=== PATIENT | female | born 1970 | race African-American/Black ===

== ENCOUNTER 2017-02-18 14:27 | Emergency (ER) | payer SELFPAY ==
--- NOTE | 2017-02-18 15:06 | ER Document Report ---
ED Medical Screen (RME) - General Chief Complaint: High Blood Pressure Stated Complaint: BLOOD PRESSURE ISSUES Time Seen by Provider: 02/18/17 15:03 Notes: Patient presents with complaints of uncontrolled blood pressure, right occipital headache, and feeling weak. Patient states that she does not have any insurance and has been unable to afford her blood pressure medication. She states in the past she has had a TIA that is resulted in some memory problems. She currently denies any known problems with confusion or extremity weakness. In triage on exam patient was noticed to have a left pronator drift. TRAVEL OUTSIDE OF THE [place] IN LAST 30 DAYS: No - Related Data Allergies/Adverse Reactions: No Known Allergies Allergy (Verified 02/18/17 14:28) Physical Exam - Vital signs Vitals: Temp Pulse Resp BP Pulse Ox 98.3 F 95 20 154/102 H 97 02/18/17 14:33 02/18/17 14:33 02/18/17 14:33 02/18/17 14:33 02/18/17 14:33 Course - Vital Signs Vital signs: Temp Pulse Resp BP Pulse Ox 98.3 F 95 20 154/102 H 97 02/18/17 14:33 02/18/17 14:33 02/18/17 14:33 02/18/17 14:33 02/18/17 14:33
--- NOTE | 2017-02-18 15:43 | RADIOLOGY REPORT (SQ) ---
EXAM DESCRIPTION: CT HEAD WITHOUT COMPLETED DATE/TIME: 02/18/2017 3:34 pm REASON FOR STUDY: mcgill/left pronator drift COMPARISON: None. TECHNIQUE: Axial images acquired through the brain without intravenous contrast. Images reviewed wi th bone, brain and subdural windows. Images stored on PACS. All CT scanners at this facility use dose modulation, iterative reconstruction, and/or weight based d osing when appropriate to reduce radiation dose to as low as reasonably achievable (ALARA). [facility]: Dose Right [facility]: CareDose [facility]: Dose Right [facility]: Teradose 4D [facility]: Smart [employer] RADIATION DOSE: CT Rad equipment meets quality standard of care and radiation dose reduction techniq ues were employed. CTDIvol: 64.6 mGy. DLP: 1163 mGy-cm. mGy. LIMITATIONS: None. FINDINGS: VENTRICLES: Normal size and contour. CEREBRUM: No masses. No hemorrhage. No midline shift. No evidence for acute infarction. Normal gra y/white matter differentiation. No areas of low density in the white matter. CEREBELLUM: No masses. No hemorrhage. No alteration of density. No evidence for acute infarction. EXTRAAXIAL SPACES: No fluid collections. No masses. ORBITS AND GLOBE: No intra- or extraconal masses. Normal contour of globe without masses. CALVARIUM: No fracture. PARANASAL SINUSES: No fluid or mucosal thickening. SOFT TISSUES: No mass or hematoma. OTHER: No other significant finding. IMPRESSION: NORMAL BRAIN CT WITHOUT CONTRAST. EVIDENCE OF ACUTE STROKE: NO. COMMENT: Quality ID # [id number]: Final reports with documentation of one or more dose reduction techniques (e.g., Automated exposure control, adjustment of the mA and/or kV according to patient size, use of iterative reconstruction technique) TECHNICAL DOCUMENTATION: JOB ID: [id number] [employer]- All Rights Reserved
[2017-02-18 15:47] LABS: ABSOLUTE EOSINOPHILS # (AUTO) 0.2 10^3/uL (0.0-0.6); ABSOLUTE LYMPHOCYTES (AUTO) 2.4 10^3/uL (0.5-4.7); ABSOLUTE MONOCYTES (AUTO) 0.5 10^3/uL (0.1-1.4); ABSOLUTE NEUT (AUTO) 3.8 10^3/uL (1.7-8.2); BASOPHILS % (AUTO) 0.2 % (0-2); EOSINOPHILS % (AUTO) 2.8 % (0-6); HEMATOCRIT 39.9 % (36.0-47.0); HEMOGLOBIN 13.3 g/dL (12.0-15.5); LYMPHOCYTES % (AUTO) 35.1 % (13-45); MEAN CORPUSCULAR HEMOGLOBIN 30.7 pg (27.0-33.4); MEAN CORPUSCULAR HGB CONC 33.3 g/dL (32.0-36.0); MEAN CORPUSCULAR VOLUME 92 fl (80-97); MONOCYTES % (AUTO) 6.9 % (3-13); RED BLOOD COUNT 4.34 10^6/uL (3.72-5.28); RED CELL DISTRIBUTION WIDTH 15.2 % (11.5-14.0); WHITE BLOOD COUNT 6.8 10^3/uL (4.0-10.5)
[2017-02-18] MEDS ORDERED: HYDROCODONE/ACETAMINOPHEN 10-325 MG TABLET PO ONE (15:47)
--- NOTE | 2017-02-18 15:47 | ER Document Report ---
ED General - General Chief Complaint: High Blood Pressure Stated Complaint: BLOOD PRESSURE ISSUES Time Seen by Provider: 02/18/17 15:03 Notes: 46 years old female presents today with intractable headache, elevated blood pressure. She checked her blood pressure at workplace and found it has been elevated. She has been having on and off headache almost every day she goes and take Excedrin, usually they help with the headache. Today it was not. She has taken multiple doses. She also gets intermittent cough wheezing and chest tightness. Denies any left arm numbness tingling sensation. She was diagnosed having had a stroke a year ago. Denies any difficulty in walking or other constitutional symptoms. TRAVEL OUTSIDE OF THE [place] IN LAST 30 DAYS: No - Related Data Allergies/Adverse Reactions: No Known Allergies Allergy (Verified 02/18/17 14:28) Past Medical History - Social History Smoking Status: Never Smoker Chew tobacco use (# tins/day): No Frequency of alcohol use: None Drug Abuse: None Family History: Reviewed & Not Pertinent Patient has suicidal ideation: No Patient has homicidal ideation: No Renal/ Medical History: Denies: Hx Peritoneal Dialysis Review of Systems - Review of Systems Notes: REVIEW OF SYSTEMS: CONSTITUTIONAL : Denies fever, chills, or sweats. Denies recent illness. EENT: Denies eye, ear, throat, or mouth pain or symptoms. Denies nasal or sinus congestion or discharge. Denies throat, tongue, or mouth swelling or difficulty swallowing. CARDIOVASCULAR: Denies chest pain. Denies palpitations or racing or irregular heart beat. Denies ankle edema. RESPIRATORY: As per history of complain denies shortness of breath, difficulty breathing, or wheezing. GASTROINTESTINAL: Denies abdominal pain or distention. Denies nausea, vomiting , or diarrhea. Denies blood in vomitus, stools, or per rectum. Denies black, tarry stools. Denies constipation. GENITOURINARY: Denies difficulty urinating, painful urination, burning, frequency, blood in urine, or discharge. FEMALE GENITOURINARY: Denies vaginal bleeding, heavy or abnormal periods, irregular periods. Denies vaginal discharge or odor. MUSCULOSKELETAL: Denies back or neck pain or stiffness. Denies joint pain or swelling. SKIN: Denies rash, lesions or sores. HEMATOLOGIC : Denies easy bruising or bleeding. LYMPHATIC: Denies swollen, enlarged glands. NEUROLOGICAL: Denies confusion or altered mental status. Denies passing out or loss of consciousness. Denies dizziness or lightheadedness. Denies weakness or paralysis or loss of use of either side. Denies problems with gait or speech. Denies sensory loss, numbness, or tingling. Denies seizures. PSYCHIATRIC: Denies anxiety or stress. Denies depression, suicidal ideation, or homicidal ideation. ALL OTHER SYSTEMS REVIEWED AND NEGATIVE. PHYSICAL EXAMINATION: GENERAL: Well-appearing, well-nourished and in no acute distress. Morbidly obese HEAD: Atraumatic, normocephalic. EYES: Pupils equal round and reactive to light, extraocular movements intact, conjunctiva are normal. ENT: Nares patent, oropharynx clear without exudates. Moist mucous membranes. Palpation over the paraspinal muscles of the neck were tender. NECK: Normal range of motion, supple without lymphadenopathy LUNGS: Breath sounds clear to auscultation bilaterally and equal. No wheezes rales or rhonchi. HEART: Regular rate and rhythm without murmurs ABDOMEN: Soft, nontender, nondistended abdomen. No guarding, no rebound. No masses appreciated. Female : deferred Musculoskeletal: Normal range of motion, no pitting or edema. No cyanosis. NEUROLOGICAL: Cranial nerves grossly intact. Normal speech, normal gait. Normal sensory, motor exams PSYCH: Normal mood, normal affect. SKIN: Warm, Dry, normal turgor, no rashes or lesions noted. Dictation was performed using [employer] voice recognition software migratory female Physical Exam - Vital signs Vitals: Temp Pulse Resp BP Pulse Ox 98.3 F 95 20 154/102 H 97 02/18/17 14:33 02/18/17 14:33 02/18/17 14:33 02/18/17 14:33 02/18/17 14:33 Course - Re-evaluation Re-evalutation: 02/18/17 18:07 Reevaluated, headache has subsided, patient is coming down. Patient feeling comfortable. Subsequently discharged home - Vital Signs Vital signs: Temp Pulse Resp BP Pulse Ox 98.3 F 95 16 149/104 H 96 02/18/17 14:33 02/18/17 14:33 02/18/17 18:02 02/18/17 18:02 02/18/17 18:02 - Laboratory Result Diagrams: 02/18/17 15:25 02/18/17 15:25 Laboratory results interpreted by me: 02/18/17 02/18/17 15:09 15:25 RDW 15.2 H Ur Leukocyte Esterase SMALL H - Diagnostic Test Radiology results interpreted by me: 02/18/17 18:07 CT of the brain reviewed radiology report indicated normal scan. Discharge - Discharge Clinical Impression: Headache Qualifiers: Headache type: unspecified Headache chronicity pattern: acute headache Intractability: not intractable Qualified Code(s): R51 - Headache Hypertension Qualifiers: Hypertension type: essential hypertension Qualified Code(s): I10 - Essential ( primary) hypertension Neck sprain Qualifiers: Encounter type: initial encounter Qualified Code(s): S13.9XXA - Sprain of joints and ligaments of unspecified parts of neck, initial encounter Condition: Good Disposition: HOME, SELF-CARE Instructions: Clonidine (Catapres) ([facility]), High Blood Pressure ([facility]), High Blood Pressure, Requiring Treatment ([facility]) Prescriptions: Ketorolac Tromethamine [Toradol 10 mg Tablet] 10 mg PO Q6HP PRN #14 tablet PRN Reason: Baclofen [Baclofen 10 mg Tablet] 10 mg PO TID PRN #30 tablet PRN Reason: Lisinopril 5 mg PO DAILY #30 tablet
[2017-02-18 15:53] LABS: AMORPHOUS SEDIMENT,URINE TRACE /HPF; APPEARANCE,URINE SLIGHTLY-CLOUDY; BILIRUBIN,URINE NEGATIVE (NEGATIVE); GLUCOSE, URINE NEGATIVE (NEGATIVE); KETONES,URINE NEGATIVE (NEGATIVE); LEUKOCYTE ESTERASE,URINE SMALL (NEGATIVE); NITRITE,URINE NEGATIVE (NEGATIVE); PROTEIN,URINE NEGATIVE (NEGATIVE); URINE SPECIFIC GRAVITY 1.025; UROBILINOGEN,URINE NEGATIVE mg/dL (<2.0)
[2017-02-18 16:03] LABS: ALANINE AMINOTRANSFERASE 31 U/L (9-52); ALBUMIN 4.8 g/dL (3.5-5.0); ALKALINE PHOSPHATASE 76 U/L (38-126); ANION GAP 16 (5-19); ASPARTATE AMINO TRANSFERASE 15 U/L (14-36); BILIRUBIN,DIRECT 0.2 mg/dL (0.0-0.4); BILIRUBIN,TOTAL 0.2 mg/dL (0.2-1.3); BLOOD UREA NITROGEN 15 mg/dL (7-20); CALCIUM 9.6 mg/dL (8.4-10.2); CARBON DIOXIDE 22 mmol/L (22-30); CHLORIDE 107 mmol/L (98-107); CREATININE RESULT 0.83 mg/dL (0.52-1.25); GLUCOSE 83 mg/dL (75-110); SODIUM 144.7 mmol/L (137-145); TOTAL PROTEIN 7.9 g/dL (6.3-8.2)
[2017-02-18] MEDS ORDERED: CLONIDINE HCL 0.2 MG TABLET PO ONE (17:04)
[2017-02-18 18:34] VITALS: BP 132/97
== END 2017-02-18 18:34 | disposition home or self-care (01) ==
LOC: ER 14:27
DX: I10 Essential (primary) hypertension (principal); S13.9XXA Sprain of joints and ligaments of unspecified parts of neck, initial encounter; X58.XXXA Exposure to other specified factors, initial encounter; R51 Headache; R07.89 Other chest pain; R05 Cough; E66.01 Morbid (severe) obesity due to excess calories; Z68.41 Body mass index [BMI] 40.0-44.9, adult; Z86.73 Personal history of transient ischemic attack (TIA), and cerebral infarction without residual deficits
CPT/HCPCS: 36415; 70450; 80053; 81001; 85025; 99284

== ENCOUNTER 2017-04-12 16:49 | Emergency (ER) | payer BC ==
[2017-04-12 17:32] VITALS: BP 149/100
[2017-04-12] MEDS ORDERED: ONDANSETRON 4 MG TAB.RAPDIS PO ONE (18:16)
--- NOTE | 2017-04-12 18:22 | ER Document Report ---
ED Medical Screen (RME) - General Chief Complaint: Nausea/Vomiting Stated Complaint: VOMITING Time Seen by Provider: 04/12/17 18:16 Mode of Arrival: Ambulatory Information source: Patient Notes: 46 yo post menopausal female with epigastric abdominal pain, nausea and vomiting on wednesday. started again today after eating [employer]acado sandwich, and started having diarrhea. Still nauseated and has lower sternal pain and right chest pain to the right of sternum when the nausea is worse. Still has gallbaldder. No fever. TRAVEL OUTSIDE OF THE [place] IN LAST 30 DAYS: No - Related Data Allergies/Adverse Reactions: No Known Allergies Allergy (Verified 04/12/17 17:03) Past Medical History - Social History Chew tobacco use (# tins/day): No Frequency of alcohol use: None Drug Abuse: None - Past Medical History Cardiac Medical History: Reports: Hx Hypertension Neurological Medical History: Reports: Hx Migraine Renal/ Medical History: Denies: Hx Peritoneal Dialysis Physical Exam - Vital signs Vitals: Temp Pulse Resp BP Pulse Ox 99.0 F 102 H 16 149/100 H 94 04/12/17 17:31 04/12/17 17:31 04/12/17 17:31 04/12/17 17:31 04/12/17 17:31 Course - Vital Signs Vital signs: Temp Pulse Resp BP Pulse Ox 99.0 F 102 H 16 149/100 H 94 04/12/17 17:31 04/12/17 17:31 04/12/17 17:31 04/12/17 17:31 04/12/17 17:31
[2017-04-12 20:35] LABS: ABSOLUTE EOSINOPHILS # (AUTO) 0.2 10^3/uL (0.0-0.6); ABSOLUTE LYMPHOCYTES (AUTO) 0.8 10^3/uL (0.5-4.7); ABSOLUTE MONOCYTES (AUTO) 0.4 10^3/uL (0.1-1.4); ABSOLUTE NEUT (AUTO) 6.7 10^3/uL (1.7-8.2); BASOPHILS % (AUTO) 0.3 % (0-2); HEMATOCRIT 42.6 % (36.0-47.0); HEMOGLOBIN 14.2 g/dL (12.0-15.5); LYMPHOCYTES % (AUTO) 9.7 % (13-45); MEAN CORPUSCULAR HEMOGLOBIN 30.4 pg (27.0-33.4); MEAN CORPUSCULAR HGB CONC 33.4 g/dL (32.0-36.0); MEAN CORPUSCULAR VOLUME 91 fl (80-97); MONOCYTES % (AUTO) 4.4 % (3-13); PLATELET COUNT 291 10^3/uL (150-450); RED BLOOD COUNT 4.68 10^6/uL (3.72-5.28); SEGMENTED NEUTROPHILS % (AUTO) 83.6 % (42-78); TOTAL CELLS COUNTED % (AUTO) 100 %
--- NOTE | 2017-04-12 20:37 | RADIOLOGY REPORT (SQ) ---
EXAM DESCRIPTION: U/S ABDOMEN LIMITED W/O DOP COMPLETED DATE/TIME: 04/12/2017 8:19 pm REASON FOR STUDY: epigastric pain, n/v/d COMPARISON: None. TECHNIQUE: Dynamic and static grayscale images acquired of the abdomen and recorded on PACS. Additio nal selected color Doppler and spectral images recorded. LIMITATIONS: None. FINDINGS: PANCREAS: No masses. Visualized pancreatic duct normal caliber. LIVER: No masses. Echotexture normal. LIVER VASCULATURE: Normal directional flow of the main portal vein and hepatic veins. GALLBLADDER: Echodensity along the dependent wall of gallbladder consistent with gallstones. No thic kening of gallbladder wall. No pericholecystic fluid collection. ULTRASOUND-DETECTED GORDON'S SIGN: Negative. INTRAHEPATIC DUCTS AND COMMON DUCT: CBD and intrahepatic ducts normal caliber. No filling defects. INFERIOR VENA CAVA: Normal flow. AORTA: No aneurysm. RIGHT KIDNEY: Normal size. Normal echogenicity. No solid or suspicious masses. No hydronephrosis. No calcifications. PERITONEAL AND RIGHT PLEURAL SPACE: No ascites or effusions. OTHER: No other significant finding. IMPRESSION: GALLSTONES. OTHERWISE NORMAL RIGHT UPPER QUADRANT ULTRASOUND. TECHNICAL DOCUMENTATION: JOB ID: [id number] [employer]- All Rights Reserved
[2017-04-12 20:57] LABS: ALANINE AMINOTRANSFERASE 33 U/L (9-52); ALBUMIN 4.5 g/dL (3.5-5.0); ALKALINE PHOSPHATASE 65 U/L (38-126); ANION GAP 13 (5-19); ASPARTATE AMINO TRANSFERASE 20 U/L (14-36); BILIRUBIN,DIRECT 0.5 mg/dL (0.0-0.4); BILIRUBIN,TOTAL 0.6 mg/dL (0.2-1.3); BLOOD UREA NITROGEN 11 mg/dL (7-20); CALCIUM 9.9 mg/dL (8.4-10.2); CARBON DIOXIDE 22 mmol/L (22-30); CHLORIDE 110 mmol/L (98-107); GLUCOSE 103 mg/dL (75-110); POTASSIUM 3.9 mmol/L (3.6-5.0); SODIUM 144.6 mmol/L (137-145); TOTAL PROTEIN 7.4 g/dL (6.3-8.2)
[2017-04-12] MEDS ORDERED: METOCLOPRAMIDE HCL 10 MG TABLET PO ONE (21:59)
[2017-04-12] MEDS ORDERED: ONDANSETRON ODT 4 MG TAB (6 TAB/ER DISP) PO PRN (21:59)
[2017-04-12 22:00] LABS: APPEARANCE,URINE CLOUDY; BILIRUBIN,URINE NEGATIVE (NEGATIVE); COLOR,URINE YELLOW; GLUCOSE, URINE NEGATIVE (NEGATIVE); KETONES,URINE NEGATIVE (NEGATIVE); LEUKOCYTE ESTERASE,URINE SMALL (NEGATIVE); NITRITE,URINE NEGATIVE (NEGATIVE); PROTEIN,URINE NEGATIVE (NEGATIVE); URINE SPECIFIC GRAVITY 1.027
--- NOTE | 2017-04-12 22:01 | ER Document Report ---
ED General - General Chief Complaint: Nausea/Vomiting Stated Complaint: VOMITING Time Seen by Provider: 04/12/17 18:16 Mode of Arrival: Ambulatory Information source: Patient Notes: 46-year-old female presents with complaints of nausea vomiting since Wednesday. Denies any fevers or chills admits to epigastric pain. TRAVEL OUTSIDE OF THE [place] IN LAST 30 DAYS: No - HPI Onset: Just prior to arrival Onset/Duration: Sudden Quality of pain: Burning Severity: Mild Pain Level: 1 Associated symptoms: Nausea, Vomiting Exacerbated by: Denies Relieved by: Denies Similar symptoms previously: No Recently seen / treated by doctor: No - Related Data Allergies/Adverse Reactions: No Known Allergies Allergy (Verified 04/12/17 17:03) Past Medical History - General Information source: Patient - Social History Smoking Status: Unknown if Ever Smoked Cigarette use (# per day): No Chew tobacco use (# tins/day): No Smoking Education Provided: No Frequency of alcohol use: None Drug Abuse: None Family History: Reviewed & Not Pertinent Patient has suicidal ideation: No Patient has homicidal ideation: No - Past Medical History Cardiac Medical History: Reports: Hx Hypertension Neurological Medical History: Reports: Hx Migraine Renal/ Medical History: Denies: Hx Peritoneal Dialysis Review of Systems - Review of Systems Notes: REVIEW OF SYSTEMS: CONSTITUTIONAL : Denies fever, chills, or sweats. Denies recent illness. EENT: Denies eye, ear, throat, or mouth pain or symptoms. Denies nasal or sinus congestion or discharge. Denies throat, tongue, or mouth swelling or difficulty swallowing. CARDIOVASCULAR: Denies chest pain. Denies palpitations or racing or irregular heart beat. Denies ankle edema. RESPIRATORY: Denies cough, cold, or chest congestion. Denies shortness of breath, difficulty breathing, or wheezing. GASTROINTESTINAL: Admits to epigastric pain nausea vomiting GENITOURINARY: Denies difficulty urinating, painful urination, burning, frequency, blood in urine, or discharge. FEMALE GENITOURINARY: Denies vaginal bleeding, heavy or abnormal periods, irregular periods. Denies vaginal discharge or odor. MUSCULOSKELETAL: Denies back or neck pain or stiffness. Denies joint pain or swelling. SKIN: Denies rash, lesions or sores. HEMATOLOGIC : Denies easy bruising or bleeding. LYMPHATIC: Denies swollen, enlarged glands. NEUROLOGICAL: Denies confusion or altered mental status. Denies passing out or loss of consciousness. Denies dizziness or lightheadedness. Denies headache. Denies weakness or paralysis or loss of use of either side. Denies problems with gait or speech. Denies sensory loss, numbness, or tingling. Denies seizures. PSYCHIATRIC: Denies anxiety or stress. Denies depression, suicidal ideation, or homicidal ideation. ALL OTHER SYSTEMS REVIEWED AND NEGATIVE. PHYSICAL EXAMINATION: GENERAL: Well-appearing, well-nourished and in no acute distress. HEAD: Atraumatic, normocephalic. EYES: Pupils equal round and reactive to light, extraocular movements intact, conjunctiva are normal. ENT: Nares patent, oropharynx clear without exudates. Moist mucous membranes. NECK: Normal range of motion, supple without lymphadenopathy LUNGS: Breath sounds clear to auscultation bilaterally and equal. No wheezes rales or rhonchi. HEART: Regular rate and rhythm without murmurs ABDOMEN: Soft, nontender, nondistended abdomen. No guarding, no rebound. No masses appreciated. Female : deferred Musculoskeletal: Normal range of motion, no pitting or edema. No cyanosis. NEUROLOGICAL: Cranial nerves grossly intact. Normal speech, normal gait. Normal sensory, motor exams PSYCH: Normal mood, normal affect. SKIN: Warm, Dry, normal turgor, no rashes or lesions noted. Dictation was performed using [employer] voice recognition software Physical Exam - Vital signs Vitals: Temp Pulse Resp BP Pulse Ox 99.0 F 102 H 16 149/100 H 94 04/12/17 17:31 04/12/17 17:31 04/12/17 17:31 04/12/17 17:31 04/12/17 17:31 Course - Re-evaluation Re-evalutation: 04/12/17 23:24 Patient notes she feels much better after Zofran was given lab work noted no significant abnormality ultrasound was consistent with gallstones without acute cholecystitis. Patient has no tenderness of the right upper quadrant. Patient will be discharged home with further nausea control. She defers on IV fluids and IV medication After performing a Medical Screening Examination, I estimate there is LOW risk for ACUTE APPENDICITIS, BOWEL OBSTRUCTION, ACUTE CHOLECYSTITIS, PERFORATED DIVERTICULITIS, INCARCERATED HERNIA, PANCREATITIS, PELVIC INFLAMMATORY DISEASE, PERFORATED ULCER, ECTOPIC , or TUBO-OVARIAN ABSCESS, thus I consider the discharge disposition reasonable. Also, there is no evidence or peritonitis , sepsis, or toxicity. I have reevaluated this patient multiple times and no significant life threatening changes are noted. The patient and I have discussed the diagnosis and risks, and we agree with discharging home with close follow-up with the understanding that symptoms and presentations can change. We also discussed returning to the Emergency Department immediately if new or worsening symptoms occur. We have discussed the symptoms which are most concerning (e.g., bloody stool, fever, changing or worsening pain, vomiting) that necessitate immediate return. - Vital Signs Vital signs: Temp Pulse Resp BP Pulse Ox 99.0 F 102 H 16 149/100 H 96 04/12/17 17:31 04/12/17 17:31 04/12/17 17:31 04/12/17 17:31 04/12/17 18:18 - Laboratory Result Diagrams: 04/12/17 20:25 04/12/17 20:25 Laboratory results interpreted by me: 04/12/17 04/12/17 04/12/17 20:25 20:25 21:33 RDW 15.0 H Seg Neutrophils % 83.6 H Lymphocytes % 9.7 L Chloride 110 H Direct Bilirubin 0.5 H Urine Urobilinogen 2.0 H Ur Leukocyte Esterase SMALL H - Diagnostic Test Radiology reviewed: Image reviewed - Report discussed with patient, Reports reviewed Discharge - Discharge Clinical Impression: Nausea & vomiting Qualifiers: Vomiting type: unspecified Vomiting Intractability: non-intractable Qualified Code(s): R11.2 - Nausea with vomiting, unspecified Gallstone Qualifiers: Cholecystitis presence: without cholecystitis Biliary obstruction: without biliary obstruction Qualified Code(s): K80.20 - Calculus of gallbladder without cholecystitis without obstruction Condition: Stable Disposition: HOME, SELF-CARE Instructions: Vomiting ([facility]) Additional Instructions: Please follow up with your pcp in 1-2 days for reevaluation or return immediately if there are any other concerns Prescriptions: Promethazine HCl [Phenergan 25 mg Tablet] 1 - 2 tab PO Q6H PRN #15 tablet PRN Reason: Forms: Return to Work
== END 2017-04-12 22:14 | disposition home or self-care (01) ==
LOC: ER 16:49
DX: K80.20 Calculus of gallbladder without cholecystitis without obstruction (principal); R11.2 Nausea with vomiting, unspecified; R10.13 Epigastric pain; I10 Essential (primary) hypertension
CPT/HCPCS: 99284; 36415; 83690; 85025; 80053; 81001; 76705; S0119

== ENCOUNTER → 2018-07-14 | Outpatient (CLI) | payer OTHER ==
[2018-07-14 11:26] LABS: ABSOLUTE EOSINOPHILS # (AUTO) 0.1 10^3/uL (0.0-0.6); ABSOLUTE LYMPHOCYTES (AUTO) 1.7 10^3/uL (0.5-4.7); ABSOLUTE MONOCYTES (AUTO) 0.3 10^3/uL (0.1-1.4); ABSOLUTE NEUT (AUTO) 2.8 10^3/uL (1.7-8.2); BASOPHILS % (AUTO) 0.8 % (0-2); EOSINOPHILS % (AUTO) 2.8 % (0-6); HEMATOCRIT 41.4 % (36.0-47.0); HEMOGLOBIN 13.7 g/dL (12.0-15.5); LYMPHOCYTES % (AUTO) 34.3 % (13-45); MEAN CORPUSCULAR HEMOGLOBIN 30.3 pg (27.0-33.4); MEAN CORPUSCULAR VOLUME 92 fl (80-97); MONOCYTES % (AUTO) 6.3 % (3-13); PLATELET COUNT 266 10^3/uL (150-450); RED BLOOD COUNT 4.51 10^6/uL (3.72-5.28); RED CELL DISTRIBUTION WIDTH 14.6 % (11.5-14.0); SEGMENTED NEUTROPHILS % (AUTO) 55.8 % (42-78); TOTAL CELLS COUNTED % (AUTO) 100 %; WHITE BLOOD COUNT 5.1 10^3/uL (4.0-10.5)
[2018-07-14 11:53] LABS: ALANINE AMINOTRANSFERASE 23 U/L (9-52); ALBUMIN 4.2 g/dL (3.5-5.0); ALKALINE PHOSPHATASE 65 U/L (38-126); ANION GAP 9 (5-19); ASPARTATE AMINO TRANSFERASE 14 U/L (14-36); BILIRUBIN,DIRECT 0.3 mg/dL (0.0-0.4); BILIRUBIN,TOTAL 0.4 mg/dL (0.2-1.3); BLOOD UREA NITROGEN 12 mg/dL (7-20); CALCIUM 9.4 mg/dL (8.4-10.2); CARBON DIOXIDE 26 mmol/L (22-30); CHLORIDE 106 mmol/L (98-107); CHOLESTEROL 205.33 mg/dL (0-200); GLUCOSE 107 mg/dL (75-110); POTASSIUM 4.5 mmol/L (3.6-5.0); SODIUM 140.9 mmol/L (137-145); TOTAL PROTEIN 7.1 g/dL (6.3-8.2); TRIGLYCERIDES 106 mg/dL (<150)
[2018-07-14 12:04] LABS: DIRECT LDL 131 mg/dL (<100)
== END ==
LOC: CCC 10:36
DX: Z00.00 Encounter for general adult medical examination without abnormal findings (principal)
CPT/HCPCS: 36415; 80053; 80061; 83036; 84443; 85025

== ENCOUNTER → 2018-07-22 | Outpatient (CLI) | payer OTHER ==
--- NOTE | 2018-07-22 14:57 | RADIOLOGY REPORT (SQ) ---
EXAM DESCRIPTION: CT HEAD WITH COMPLETED DATE/TIME: 07/22/2018 2:43 pm REASON FOR STUDY: R51 HEADACHE R51 HEADACHE COMPARISON: 02/18/2017 TECHNIQUE: Axial images acquired through the brain with intravenous contrast. Images reviewed with b one, brain and subdural windows. Images stored on PACS. All CT scanners at this facility use dose modulation, iterative reconstruction, and/or weight based d osing when appropriate to reduce radiation dose to as low as reasonably achievable (ALARA). [facility]: Dose Right [facility]: CareDose [facility]: Dose Right [facility]: Teradose 4D [facility]: [employer] CONTRAST TYPE AND DOSE: contrast/concentration: Isovue 350.00 mg/ml; Total Contrast Delivered: 50.0 ml; Total Saline Delivered: 55.0 ml RENAL FUNCTION: Creatinine 0.9 RADIATION DOSE: CT Rad equipment meets quality standard of care and radiation dose reduction techniq ues were employed. CTDIvol: 48.6 mGy. DLP: 1908 mGy-cm.. LIMITATIONS: None. FINDINGS: VENTRICLES: Normal size and contour. CEREBRUM: No masses. No hemorrhage. No midline shift. Normal escalera/white matter differentiation. No ev idence for acute infarction. No enhancing lesions. CEREBELLUM: No masses. No hemorrhage. No alteration of density. No evidence for acute infarction. No enhancing lesions. EXTRA-AXIAL SPACES: No fluid collections. No enhancing lesions. ORBITS AND GLOBE: No intra- or extraconal masses. Normal contour of globe without masses. CALVARIUM: No fracture. PARANASAL SINUSES: No fluid or mucosal thickening. SOFT TISSUES: No mass or hematoma. OTHER: No other significant finding. IMPRESSION: NORMAL BRAIN CT WITH CONTRAST. EVIDENCE OF ACUTE STROKE: NO. TECHNICAL DOCUMENTATION: JOB ID: [id number] Quality ID # [id number]: Final reports with documentation of one or more dose reduction techniques (e.g., Au tomated exposure control, adjustment of the mA and/or kV according to patient size, use of iterative reconstruction technique) 2010 [employer]- All Rights Reserved Reading location - IP/workstation name: [email or web address]
== END ==
LOC: RAD 13:57
DX: R51 Headache (principal)
CPT/HCPCS: 70460; 82565

== ENCOUNTER 2019-02-13 12:00 | Emergency (ER) | payer SELFPAY ==
[2019-02-13] MEDS ORDERED: ACETAMINOPHEN 325 MG TABLET PO ONE (13:33)
--- NOTE | 2019-02-13 13:35 | ER Document Report ---
ED Medical Screen (RME) - General Chief Complaint: Headache Stated Complaint: HIGH BLOOD PRESSURE/HEADACHES Time Seen by Provider: 02/13/19 13:33 Primary Care Provider: JESSI POLLACK [Primary Care Provider] - Follow up as needed Mode of Arrival: Ambulatory Information source: Patient Notes: Patient presents complaining of headache for the past 2 weeks. Patient states that the headache becomes severe at night and will frequently wake her up. Patient states that she notices that her blood pressure will spike when her head is hurting. Patient states she is also had a cough for the past month but is uncertain if this may be due to her blood pressure medication. Patient was taking lisinopril and her doctor changed this after she had a cough. Patient states she stopped the lisinopril a month ago. Patient is presently taking losartan. Patient states cough can occasionally be productive. Patient complains of severe headache pain. Patient did drive herself here today. I have greeted and performed a rapid initial assessment of this patient. A comprehensive ED assessment and evaluation of the patient, analysis of test results and completion of the medical decision making process will be conducted by additional ED providers. TRAVEL OUTSIDE OF THE [place] IN LAST 30 DAYS: No - Related Data Allergies/Adverse Reactions: No Known Allergies Allergy (Verified 04/12/17 17:03) Home Medications: Losartan/HCTZ Past Medical History - Social History Chew tobacco use (# tins/day): No Frequency of alcohol use: None Drug Abuse: None - Past Medical History Cardiac Medical History: Reports: Hx Hypertension Neurological Medical History: Reports: Hx Migraine Renal/ Medical History: Denies: Hx Peritoneal Dialysis Physical Exam - Vital signs Vitals: Temp Pulse Resp BP Pulse Ox 98.0 F 79 18 144/87 H 96 02/13/19 12:52 02/13/19 12:52 02/13/19 12:52 02/13/19 12:52 02/13/19 12:52 - General General appearance: Appears well, Alert In distress: None - Respiratory Respiratory status: No respiratory distress Breath sounds: Nonproductive cough Course - Vital Signs Vital signs: Temp Pulse Resp BP Pulse Ox 98.0 F 79 18 144/87 H 96 02/13/19 13:29 02/13/19 12:52 02/13/19 13:29 02/13/19 12:52 02/13/19 13:29 Doctor's Discharge - Discharge Referrals: [facility] [Primary Care Provider] - Follow up as needed
[2019-02-13] MEDS ORDERED: ONDANSETRON 4 MG TAB.RAPDIS PO ONE (13:43)
--- NOTE | 2019-02-13 14:09 | RADIOLOGY REPORT (SQ) ---
EXAM DESCRIPTION: CT HEAD WITHOUT COMPLETED DATE/TIME: 02/13/2019 1:57 pm REASON FOR STUDY: ALVA COMPARISON: 07/22/2018 TECHNIQUE: Axial images acquired through the brain without intravenous contrast. Images reviewed wi th bone, brain and subdural windows. Additional sagittal and coronal reconstructions were generated. Images stored on PACS. All CT scanners at this facility use dose modulation, iterative reconstruction, and/or weight based d osing when appropriate to reduce radiation dose to as low as reasonably achievable (ALARA). [facility]: Dose Right [facility]: CareDose [facility]: Dose Right [facility]: Teradose 4D [facility]: [employer] RADIATION DOSE: CT Rad equipment meets quality standard of care and radiation dose reduction techniq ues were employed. CTDIvol: 53.2 mGy. DLP: 1097 mGy-cm. mGy. LIMITATIONS: None. FINDINGS: VENTRICLES: Normal size and contour. CEREBRUM: No masses. No hemorrhage. No midline shift. No evidence for acute infarction. Normal gra y/white matter differentiation. No areas of low density in the white matter. CEREBELLUM: No masses. No hemorrhage. No alteration of density. No evidence for acute infarction. EXTRAAXIAL SPACES: No fluid collections. No masses. ORBITS AND GLOBE: No intra- or extraconal masses. Normal contour of globe without masses. CALVARIUM: No fracture. PARANASAL SINUSES: No fluid or mucosal thickening. SOFT TISSUES: No mass or hematoma. OTHER: No other significant finding. IMPRESSION: No acute intracranial pathology. No noncontrast CT findings to explain headache. EVIDENCE OF ACUTE STROKE: NO. COMMENT: Quality ID # [id number]: Final reports with documentation of one or more dose reduction techniques (e.g., Automated exposure control, adjustment of the mA and/or kV according to patient size, use of iterative reconstruction technique) TECHNICAL DOCUMENTATION: JOB ID: [id number] [email or web address]- All Rights Reserved Reading location - IP/workstation name: [email or web address]
--- NOTE | 2019-02-13 14:43 | RADIOLOGY REPORT (SQ) ---
EXAM DESCRIPTION: CHEST 2 VIEWS COMPLETED DATE/TIME: 02/13/2019 2:13 pm REASON FOR STUDY: cough COMPARISON: None. TECHNIQUE: Frontal and lateral radiographic views of the chest acquired. NUMBER OF VIEWS: Two view. LIMITATIONS: None. FINDINGS: LUNGS AND PLEURA: No opacities, masses or pneumothorax. No pleural effusion. MEDIASTINUM AND HILAR STRUCTURES: No masses or contour abnormalities. HEART AND VASCULAR STRUCTURES: Heart normal size. No evidence for failure. BONES: No acute findings. HARDWARE: None in the chest. OTHER: No other significant finding. IMPRESSION: NO SIGNIFICANT RADIOGRAPHIC FINDING IN THE CHEST. TECHNICAL DOCUMENTATION: JOB ID: [id number] [employer]- All Rights Reserved Reading location - IP/workstation name: [email or web address]
[2019-02-13 15:00] LABS: ABSOLUTE BASOPHILS # (AUTO) 0.1 10^3/uL (0.0-0.2); ABSOLUTE EOSINOPHILS # (AUTO) 0.3 10^3/uL (0.0-0.6); ABSOLUTE LYMPHOCYTES (AUTO) 2.5 10^3/uL (0.5-4.7); ABSOLUTE MONOCYTES (AUTO) 0.4 10^3/uL (0.1-1.4); ABSOLUTE NEUT (AUTO) 3.2 10^3/uL (1.7-8.2); BASOPHILS % (AUTO) 1.1 % (0-2); HEMATOCRIT 42.9 % (36.0-47.0); HEMOGLOBIN 14.5 g/dL (12.0-15.5); LYMPHOCYTES % (AUTO) 39.1 % (13-45); MEAN CORPUSCULAR HEMOGLOBIN 30.8 pg (27.0-33.4); MEAN CORPUSCULAR HGB CONC 33.8 g/dL (32.0-36.0); MEAN CORPUSCULAR VOLUME 91 fl (80-97); PLATELET COUNT 258 10^3/uL (150-450); RED BLOOD COUNT 4.72 10^6/uL (3.72-5.28); RED CELL DISTRIBUTION WIDTH 15.3 % (11.5-14.0); SEGMENTED NEUTROPHILS % (AUTO) 49.8 % (42-78); TOTAL CELLS COUNTED % (AUTO) 100 %; WHITE BLOOD COUNT 6.4 10^3/uL (4.0-10.5)
[2019-02-13 15:47] LABS: ANION GAP 11 (5-19); BLOOD UREA NITROGEN 12 mg/dL (7-20); CALCIUM 9.7 mg/dL (8.4-10.2); CARBON DIOXIDE 24 mmol/L (22-30); CHLORIDE 103 mmol/L (98-107); GLUCOSE 92 mg/dL (75-110); POTASSIUM 3.7 mmol/L (3.6-5.0)
--- NOTE | 2019-02-13 18:00 | ER Document Report ---
ED General - General Chief Complaint: Headache Stated Complaint: HIGH BLOOD PRESSURE/HEADACHES Time Seen by Provider: 02/13/19 13:33 Primary Care Provider: [facility] [Primary Care Provider] - Follow up as needed Mode of Arrival: Ambulatory Notes: 48-year-old female with hypertension presents to the emergency department with chief complaint of worsening headache for the past 2 weeks, dry cough and lack of sleep secondary to cough and headache. Patient is concerned that the cough is secondary to her blood pressure medication. She was recently switched from lisinopril 1 month ago for cough and placed on an ARB but still suffers from the same symptoms. Patient states "it feels like my head is going to explode" right before bed. She thinks that her blood pressure goes up whenever she has the headache. Patient denies any recent illness, denies acute confusion or altered mental status, denies any history of respiratory disease, denies productive cough to me, denies chest pain, denies abdominal pain, denies flank pain or any anuria. TRAVEL OUTSIDE OF THE [place] IN LAST 30 DAYS: No - Related Data Allergies/Adverse Reactions: No Known Allergies Allergy (Verified 02/13/19 17:05) Home Medications: Losartan/HCTZ Past Medical History - General Information source: Patient - Social History Smoking Status: Never Smoker Chew tobacco use (# tins/day): No Frequency of alcohol use: None Drug Abuse: None Family History: Reviewed & Not Pertinent Patient has suicidal ideation: No Patient has homicidal ideation: No - Past Medical History Cardiac Medical History: Reports: Hx Hypercholesterolemia, Hx Hypertension Neurological Medical History: Reports: Hx Migraine Renal/ Medical History: Denies: Hx Peritoneal Dialysis Review of Systems - Review of Systems Constitutional: See HPI EENT: No symptoms reported Cardiovascular: See HPI Respiratory: See HPI Gastrointestinal: See HPI Genitourinary: No symptoms reported Female Genitourinary: No symptoms reported Musculoskeletal: No symptoms reported Skin: No symptoms reported Hematologic/Lymphatic: No symptoms reported Neurological/Psychological: See HPI Physical Exam - Vital signs Vitals: Temp Pulse Resp BP Pulse Ox 98.0 F 79 18 144/87 H 96 02/13/19 12:52 02/13/19 12:52 02/13/19 12:52 02/13/19 12:52 02/13/19 12:52 - Notes Notes: PHYSICAL EXAMINATION: Reviewed vital signs and charting by RN GENERAL: Alert, interacts well. No acute distress. HEAD: Normocephalic, atraumatic. EYES: Pupils equal and round. Extraocular movements intact. ENT: Oral mucosa moist, tongue midline. NECK: Full range of motion. Trachea midline. LUNGS: Clear to auscultation bilaterally, no wheezes, rales, or rhonchi. No respiratory distress. HEART: Regular rate and rhythm. No murmur ABDOMEN: soft, non-tender. No distention. Bowel sounds present EXTREMITIES: Moves all 4 extremities spontaneously. No edema, No cyanosis. PSYCH: Normal affect, normal mood. SKIN: Warm, dry, normal turgor. No rashes or lesions noted. Course - Re-evaluation Re-evalutation: 02/13/19 18:22 Well-appearing in no acute distress, nursing notes reviewed, vital signs recorded. Patient with a blood pressure of 147/88 upon arrival. Patient did complain of headache that Tylenol did help. Labs ordered and there is no evidence of any endorgan dysfunction: CT head negative for any acute intracranial bleed or acute stroke, chest x-ray did not show any evidence of parenchymal disease or widened mediastinum, negative troponin, normal kidney function and patient is urinating. Patient's dry cough I think is attributed to the ARB as there is a similar side effect profile to an TIMOTHY inhibitor. Patient does have follow-up with your primary on Wednesday. At this time she is stable for discharge. Patient agrees with plan. - Vital Signs Vital signs: Temp Pulse Resp BP Pulse Ox 98.0 F 79 18 144/87 H 96 02/13/19 13:29 02/13/19 12:52 02/13/19 13:29 02/13/19 12:52 02/13/19 13:29 - Laboratory Result Diagrams: 02/13/19 14:45 02/13/19 14:45 Laboratory results interpreted by me: 02/13/19 14:45 RDW 15.3 H Discharge - Discharge Clinical Impression: Cough Headache Qualifiers: Headache type: unspecified Headache chronicity pattern: acute headache Intractability: not intractable Qualified Code(s): R51 - Headache Condition: Good Disposition: HOME, SELF-CARE Additional Instructions: You were seen in the emergency department today for high blood pressure, cough, headache. Your work-up was very reassuring and did not show any evidence of endorgan damage. The CT of your brain was normal and there is no evidence of stroke or bleed. Your blood work was within normal limits and no evidence of kidney failure, a troponin was drawn which did not show any evidence of heart strain. Chest x-ray was normal as there was no evidence of pneumonia or enlargement of your heart. This is all very reassuring. Is unclear why you are having these headaches but continue to take the Aleve and you can also add Tylenol 1000 mg every 6 hours and if necessary you can take Benadryl 25 mg p.o. capsules to see if that helps. I suspect your cough is secondary to your antihypertensive. Documented ARB adverse reactions for cough are around 3%, similar to TIMOTHY inhibitors which are documented at around 3 to 4%. It might be reasonable to switch to a calcium channel mikayla and do a stand-alone diuretic like hydrochlorothiazide. You will need to discuss this with your primary doctor. Please return to the emergency department if you continue to have severe headaches accompanied with confusion or slurred speech, altered mental status. Also return if you have severe chest pain or acute shortness of breath, you pass out, or you have any other concerning symptoms Referrals: [facility] [Primary Care Provider] - Follow up as needed
[2019-02-13 18:35] VITALS: BP 139/96
== END 2019-02-13 18:35 | disposition home or self-care (01) ==
LOC: ER 12:00
DX: R51 Headache (principal); R05 Cough; I10 Essential (primary) hypertension; Z79.899 Other long term (current) drug therapy; Z86.69 Personal history of other diseases of the nervous system and sense organs
CPT/HCPCS: 99284; 36415; 85025; 80048; 71046; 70450; S0119

== ENCOUNTER → 2019-08-30 | Outpatient (CLI) | payer BC ==
--- NOTE | 2019-08-30 13:49 | RADIOLOGY REPORT (SQ) ---
EXAM DESCRIPTION: MRI BREAST BILATERAL W/WO IMAGES COMPLETED DATE/TIME: 08/30/2019 9:44 am COMPARISON: Bilateral diagnostic mammogram, 08/18/2019. Left breast ultrasound 07/28/2019. CORRELATION: Previous outside pathology reports. CONTRAST TYPE AND DOSE: 20 mL ProHance RENAL FUNCTION: GFR > 60. TECHNIQUE: MR imaging performed with a dedicated breast coil. Pre contrast T1 and T2 weighted images . Pre contrast and post contrast enhanced T1 weighted images with fat saturation. Subtraction imag es, 3D thick and thin MIPS, and kinetic analysis performed on an independent workstation. (Issuu w orkstation) LMP: Postmenopausal LIMITATIONS: None. FINDINGS: BREAST DENSITY: There are scattered areas of fibroglandular tissue. BACKGROUND PARENCHYMAL ENHANCEMENT:Minimal. RIGHT BREAST:Artifact from the biopsy marker clip in the right breast within a circumscribed enhancin g mass corresponding to the fibroadenoma. Anterior and slightly inferior to this also at about the 6 - 7 o'clock position about 3 cm from the nipple, there is an 8 mm circumscribed enhancing mass which demonstrates persistent enhancement on delayed images. A few scattered intramammary cysts and lymph nodes. RIGHT AXILLA:Normal appearing lymph nodes. No adenopathy. LEFT BREAST: Spiculated 9 mm mass in the anterior left breast 6 o'clock position corresponds to the k nown biopsy-proven cancer. No other mass or abnormal enhancement. LEFT AXILLA: Normal appearing left axillary lymph nodes. No adenopathy. CHEST WALL: No chest wall mass or abnormal enhancement. OTHER: IMPRESSION: 1. Spiculated 9 mm mass in the left breast corresponds to the biopsy-proven malignancy. 2. Circumscribed 8 mm enhancing mass in the right breast likely corresponds to the 2nd lesion seen on previous breast ultrasound. This has a lobulated margin on ultrasound and is mildly suspicious. Ul trasound-guided biopsy of this lesion is recommended. 3. No evidence of axillary metastases. BIRAD: RIGHT BREAST: 4 Suspicious. Biopsy should be considered. LEFT BREAST: 6 Known biopsy-proven malignancy. Appropriate action should be taken. RECOMMENDATION: RECOMMENDED FOLLOW-UP: Ultrasound-guided biopsy of the mass in the right breast at 6 o'clock 6 cm from the nipple. TECHNICAL DOCUMENTATION: JOB ID: [id number] 2010 [employer])- All Rights Reserved REASON FOR STUDY: MAL ZEYAD OF UNSPECIFIED SITE OF LEFT FEMALE BREAST C50.912 MALIGNANT NEOPLASM OF U NSPECIFIED SITE OF LEFT FEMAL MAL ZEYAD OF UNSPECIFIED SITE OF LEFT FEMALE BREAST. 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 Right breast he will did a hyalinized fibroadenoma. Reading location - IP/workstation name: [email or web address]
== END ==
LOC: RAD 09:13
PROVIDERS: ATTEND Surgery
DX: C50.912 Malignant neoplasm of unspecified site of left female breast (principal); N63.10 Unspecified lump in the right breast, unspecified quadrant
CPT/HCPCS: 82565; 77049; A9576

== ENCOUNTER → 2019-09-19 | Day surgery (SDC) | payer BC ==
[~2019-09-19] MED LIST: LIDOCAINE 2% INJ (20 MG/ML) 20 ML MDV ONE
--- NOTE | 2019-09-21 15:31 | WOMENS IMAGING REPORT ---
EXAM DESCRIPTION: U/S BREAST BX; RIGHT DIAGNOSTIC MAMMO W/CAD IMAGES COMPLETED DATE/TIME: 09/21/2019 1:07 pm; 09/19/2019 10:45 am REASON FOR STUDY: R92.8 OTH ABN AND INCONCLUSIVE FINDINGS ON DX IMAGING OF BREAST; S/P US BX FOR CLI P PLACEMENT RIGHT BREAST R92.8 OTH ABN AND INCONCLUSIVE FINDINGS ON DX IMAGING OF PRIYANKA COMPARISON: None. TECHNIQUE: The procedure was discussed with the patient and the patient agreed to proceed. The patient was scanned and the area of interest in the 6 o'clock position of the right breast was lo calized. This correlates with the area of concern on prior imaging studies. This area was targeted f or ultrasound-guided core biopsy. After sterile skin prep and 2.0 mL local lidocaine 1 % skin and deep tissue anesthesia, a 14 gauge co re biopsy needle was used to obtain several cores of tissue from the lesion. Under ultrasound guidan ce, a Ribbon clip was placed in the areas sampled. There were no immediate post-procedure complicati ons. MAMMOGRAM: Post-procedure two view mammogram was acquired in the digital mammogram suite. The clip wa s in the expected location. No significant hematoma. Pathology yields a diagnosis of fibroadenoma with focal calcification. Pathology is concordant. LIMITATIONS: None. FINDINGS: Ultrasound guided breast biopsy as described above. POST PROCEDURE MAMMOGRAMS FOR MARKER PLACEMENT: Yes IMPRESSION: ULTRASOUND-GUIDED CORE BIOPSY OF THE RIGHT BREAST YIELDS A DIAGNOSIS OF FIBROADENOMA. COMMENT: COMMUNICATION: The patient's provider has been notified of the findings. The provider will discuss the findings with the patient. Patient medication list reviewed: Yes- Quality ID# [id number]:Eligible professional attests to documenting i n the medical record they obtained, updated, or reviewed the patient's current medications. TECHNICAL DOCUMENTATION: JOB ID: [id number] 2010 [employer]- All Rights Reserved Reading location - IP/workstation name: [email or web address]
== END ==
LOC: WI 09:17
PROVIDERS: ATTEND Surgery
DX: D24.1 Benign neoplasm of right breast (principal); R92.8 Other abnormal and inconclusive findings on diagnostic imaging of breast
CPT/HCPCS: 88305 ×2; 88342; 19083; 77065; J3490

== ENCOUNTER 2020-01-03 07:54 | Day surgery (SDC) | payer BC ==
[~2020-01-03 07:54] MED LIST changes: +BUPIVACAINE HCL 0.25 % INJ/PF (2.5 MG/1 ML) 30 ML VIAL ONE; +CEFAZOLIN 2 GM/D5W RTU 2 GM/50 ML RTUPB IV PRN; +DEXMEDETOMIDINE INJ 80 MCG/20 ML VIAL IV ONE; +FENTANYL CITRATE INJ/PF 100 MCG/2 ML AMPUL ONE; +LIDOCAINE 1% INJ-PF (10 MG/ML) 30 ML SDV ONE; -LIDOCAINE 2% INJ (20 MG/ML) 20 ML MDV ONE; +MIDAZOLAM 2 MG/2 ML INJ ONE; +PROPOFOL INJ 200 MG/20 ML VIAL IV ONE
[2020-01-03] MEDS ORDERED: CEFAZOLIN 2 GM/D5W RTU 2 GM/50 ML RTUPB IV ONE (08:28)
[2020-01-03] MEDS ORDERED: MORPHINE SULFATE 10 MG/ML INJ IV PRN (08:40)
[2020-01-03] MEDS ORDERED: FENTANYL CITRATE INJ/PF 100 MCG/2 ML AMPUL IV PRN ×3 (08:40)
[2020-01-03] MEDS ORDERED: ONDANSETRON HCL INJ/PF 4 MG/2 ML SDV IV PRN (08:40)
[2020-01-03] MEDS ORDERED: MEPERIDINE HCL/PF INJ 25 MG/1 ML DISP.SYRIN IV PRN (08:40)
[2020-01-03] MEDS ORDERED: DIPHENHYDRAMINE HCL 50 MG/ML VIAL IV PRN (08:40)
[2020-01-03 09:12] LABS: ANION GAP 5 (5-19); BLOOD UREA NITROGEN 13 mg/dL (7-20); CALCIUM 8.8 mg/dL (8.4-10.2); CARBON DIOXIDE 25 mmol/L (22-30); CHLORIDE 111 mmol/L (98-107); GLUCOSE 95 mg/dL (75-110); POTASSIUM 4.1 mmol/L (3.6-5.0)
[2020-01-03] MEDS ORDERED: HYDROCODONE/ACETAMINOPHEN 10-325 MG TABLET PO PRN (10:20)
--- NOTE | 2020-01-03 10:20 | Discharge Summary ---
Discharge Summary (SDC) - Discharge Final Diagnosis: Breast cancer Date of Surgery: 01/03/20 Discharge Date: 01/03/20 Condition: Stable Forms: ASU Anesthesia D/C Instruction, Discharge POC-Surgical Service Treatment or Instructions: Discharge home. Diet as tolerated. Activity: Nonstrenuous. Follow-up with [facility] as needed. Okay to use Mediport. Okay to shower starting on Wednesday take swimming pools or tub baths x2 weeks. Referrals: COREEN JANG MD [ACTIVE STAFF] - Discharge Diet: As Tolerated Respiratory Treatments at Home: Deep Breathing/Coughing, Incentive Spirometer Discharge Activity: Activity As Tolerated, Balance Activity w/Rest Home Care Assistance: None Needed Report the Following to Your Physician Immediately: Shortness of Breath, Nausea, Vomiting, Increase in Pain, Fever over 101 Degrees, Unusual Bleeding, Redness, Swelling, Warmth
--- NOTE | 2020-01-03 10:27 | Operative Report ---
Nonrecallable Operative Report DATE OF SURGERY: 01/03/20 PREOPERATIVE DIAGNOSIS: Left sided breast cancer POSTOPERATIVE DIAGNOSIS: Same as above OPERATION: 1. Ultrasound-guided central venous puncture. 2. Right internal jugular vein central line placement (Mediport). SURGEON: COREEN JANG ANESTHESIA: LMAC TISSUE REMOVED OR ALTERED: None COMPLICATIONS: None apparent ESTIMATED BLOOD LOSS: Minimal PROCEDURE: Drain/implants: Right internal jugular vein Mediport. Procedure in detail: After informed consent was obtained, the patient was brought into the operating room and laid in the Trendelenburg position. The area of the neck and chest were prepped and draped in a normal sterile fashion. The ultrasound was used to identify the right internal jugular vein. It was compressible with normal flow. Under direct ultrasonic guidance, the right internal jugular vein was cannulated using the supplied access needle. The wire was advanced easily into the vein. The wire was confirmed to be within the lumen of the vein using the ultrasound device, as well as fluoroscopy. Picture documentation was obtained and placed on the chart. Next, a separate incision was created on the right chest wall to accommodate the Mediport hub. The catheter was tunneled from the Mediport hub site to the needle insertion site. Next, the dilator and breakaway sheath were inserted over the wire. This was done under direct fluoroscopic guidance. The wire and dilator were then removed, leaving the breakaway sheath within the SVC. The catheter was inserted into the sheath. The sheath was cracked and pulled away, leaving the catheter within the SVC. The catheter was pulled back to an appropriate level. The catheter was trimmed to length, and the Mediport hub was attached. The hub was buried in the pocket. It was sutured to the chest wall using 3-0 Vicryl suture. The subcutaneous tissues were then closed using 3-0 Vicryl suture. The overlying skin was closed using 4-0 Vicryl Rapide suture in subcuticular fashion. The catheter was then accessed and flushed with heparinized saline. Dressings were placed, and the procedure was concluded. All sponge, instrument, and needle counts were correct x2. Condition: Stable.
--- NOTE | 2020-01-03 10:32 | RADIOLOGY REPORT (SQ) ---
EXAM DESCRIPTION: FLUORO/CV PLACEMENT IMAGES COMPLETED DATE/TIME: 01/03/2020 10:16 am REASON FOR STUDY: RIGHT PORT-A-CATH C50.912 MALIGNANT NEOPLASM OF UNSPECIFIED SITE OF LEFT FEMAL COMPARISON: None. FLUOROSCOPY TIME: 0.3 minutes Spot images saved to PACS. TECHNIQUE: Intra-operative images acquired during surgical procedure to evaluate progress. NUMBER OF IMAGES: 3 LIMITATIONS: None. FINDINGS: Fluoroscopy was provided for intraoperative procedure. Please refer to the operative repo rt for further discussion. IMPRESSION: IMAGE(S) OBTAINED DURING PROCEDURE. COMMENT: Quality ID [id number]: Final reports for procedures using fluoroscopy that document radiation exp osure indices, or exposure time and number of fluorographic images (if radiation exposure indices are not available) Please consult full operative report of the attending physician for description of the procedure. TECHNICAL DOCUMENTATION: JOB ID: [id number] 2010 [employer]- All Rights Reserved Reading location - IP/workstation name: [email or web address]
--- NOTE | 2020-01-03 10:53 | RADIOLOGY REPORT (SQ) ---
EXAM DESCRIPTION: CHEST SINGLE VIEW IMAGES COMPLETED DATE/TIME: 01/03/2020 10:44 am REASON FOR STUDY: c-line insertion COMPARISON: 02/13/2019 EXAM PARAMETERS: NUMBER OF VIEWS: One view. TECHNIQUE: Single frontal radiographic view of the chest acquired. RADIATION DOSE: NA LIMITATIONS: None. FINDINGS: LUNGS AND PLEURA: Right-sided [id number]-[id number] is been placed. Catheter tip overlies the pro ximal SVC. No pneumothorax. Minimal left basilar atelectasis. There is elevation of the right jeannie diaphragm. MEDIASTINUM AND HILAR STRUCTURES: No masses. Contour normal. HEART AND VASCULAR STRUCTURES: Heart normal in size. Normal vasculature. BONES: No acute findings. HARDWARE: None in the chest. OTHER: No other significant finding. IMPRESSION: Elevated right hemidiaphragm new from prior chest film. Ikbqca-L-Gxzj is in satisfactor y position. Catheter tip overlies the SVC. Minimal left basilar atelectasis. TECHNICAL DOCUMENTATION: JOB ID: [id number] 2010 [employer]- All Rights Reserved Reading location - IP/workstation name: [email or web address]
[2020-01-03] MEDS ORDERED: HYDROCODONE/ACETAMINOPHEN 10-325 MG TABLET ONE (11:15)
[2020-01-03 13:50] VITALS: BP 108/70
== END 2020-01-03 12:36 | disposition home or self-care (01) ==
LOC: OROUT 07:54
PROVIDERS: ATTEND Surgery
DX: C50.912 Malignant neoplasm of unspecified site of left female breast (principal); Z03.818 Encounter for observation for suspected exposure to other biological agents ruled out; I10 Essential (primary) hypertension; F32.9 Major depressive disorder, single episode, unspecified; Z79.899 Other long term (current) drug therapy; Z86.73 Personal history of transient ischemic attack (TIA), and cerebral infarction without residual deficits
CPT/HCPCS: 36415; 84703; 80048; 71045; 77001; 36561; U0003; J2250; J3010; J3490 ×2; J2704; J0690; J1642; C9803; 532; 87635; C1788

== ENCOUNTER → 2020-01-24 | Outpatient (CLI) | payer BC ==
--- NOTE | 2020-01-24 18:26 | RADIOLOGY REPORT (SQ) ---
EXAM DESCRIPTION: VENOUS UNILATERAL UPPER IMAGES COMPLETED DATE/TIME: 01/24/2020 6:03 pm REASON FOR STUDY: RUEV R22.1 LOCALIZED SWELLING, MASS AND LUMP, NECK COMPARISON: None. TECHNIQUE: Dynamic and static escalera scale and color images acquired of the right arm venous system. S elected spectral images acquired with additional compression and augmentation maneuvers. The contrala teral subclavian vein and internal jugular vein were also imaged. Images stored on PACS. LIMITATIONS: None. FINDINGS: INTERNAL JUGULAR VEIN: There is acute thrombus in the right jugular vein. SUBCLAVIAN VEIN: Normal compression, augmentation. No visualized echogenic material on escalera scale. No defects on color images. AXILLARY VEIN: Normal compression, augmentation. No visualized echogenic material on escalera scale. No d efects on color images. BRACHIAL VEIN: Normal compression, augmentation. No visualized echogenic material on escalera scale. No d efects on color images. BASILIC VEIN: Normal compression, augmentation. No visualized echogenic material on escalera scale. No de fects on color images. CEPHALIC VEIN: Normal compression, augmentation. No visualized echogenic material on escalera scale. No d efects on color images. OTHER: No other significant finding. IMPRESSION: Acute thrombus in the right jugular vein. COMMENT: This report was called to JOSE MCGARRY MD at18:20 on 01/24/2020. The report was called by the special procedures technologist at 1745 hours. TECHNICAL DOCUMENTATION: JOB ID: [id number] 2010 [employer]- All Rights Reserved Reading location - IP/workstation name: [email or web address]
== END ==
LOC: SP 15:31
PROVIDERS: ATTEND Internal Medicine
DX: I82.C11 Acute embolism and thrombosis of right internal jugular vein (principal)
CPT/HCPCS: 93971

== ENCOUNTER → 2020-01-31 | Outpatient (CLI) | payer BC ==
--- NOTE | 2020-01-31 10:04 | RADIOLOGY REPORT (SQ) ---
EXAM DESCRIPTION: CT SOFT TISSUE NECK WITH IMAGES COMPLETED DATE/TIME: 01/31/2020 9:36 am REASON FOR STUDY: C50.012 MALIGNANT NEOPLASM OF NIPPLE AND AREOLA, LEFT FEMALE BREAST C50.012 MALIG NANT NEOPLASM OF NIPPLE AND AREOLA, LEFT FEMALE R22.1 LOCALIZED SWELLING, MASS AND LUMP, NECK COMPARISON: Ultrasound 01/24/2020 TECHNIQUE: Post IV contrasted scanning from skull base through lung apices with review of bone, soft tissue and lung windows. Reconstructed coronal and sagittal MPR images reviewed. All images stored on PACS. All CT scanners at this facility use dose modulation, iterative reconstruction, and/or weight based d osing when appropriate to reduce radiation dose to as low as reasonably achievable (ALARA). [facility]: Dose Right [facility]: CareDose [facility]: Dose Right [facility]: Teradose 4D [facility]: [employer] CONTRAST TYPE AND DOSE: 75mL Omnipaque 350 RENAL FUNCTION: Creatinine 0.69 RADIATION DOSE: CT Rad equipment meets quality standard of care and radiation dose reduction techniq ues were employed. CTDIvol: 21.2 mGy. DLP: 673 mGy-cm. mGy. LIMITATIONS: None. FINDINGS: SKULL BASE: Intact. MAJOR SALIVARY GLANDS: No solid or cystic masses. No inflammatory changes. LYMPHADENOPATHY: Multiple enlarged right-sided level 2 lymph nodes, largest measuring 12 mm in short axis (series 3, image 46). MUCOSAL MASSES OR ASYMMETRY: No mucosal masses or asymmetry. LARYNX/CORDS: No abnormal findings. VASCULAR STRUCTURES: There is acute appearing thrombus within the right internal jugular vein extendi ng from the skull and throughout the entire internal jugular vein. Evaluation of the brachiocephalic and subclavian somewhat compromised secondary to contrast mixing from the left side. SVC is patent. Right internal jugular base chest port is present with catheter tip at the cavoatrial junction. LUNG APICES: Clear. BONES: Intact. No acute findings. Reversal of the normal cervical lordosis. Multilevel degenerativ e changes greatest at C5-6 and C6-7. No suspicious osseous lesions. THYROID: Subcentimeter cyst within the left thyroid lobe. PARANASAL SINUSES: Clear. OTHER: No other significant finding. IMPRESSION: 1. Right internal jugular based chest port present with acute appearing thrombus involv ing the entire right IJ to the level of the skullbase. Evaluation of brachiocephalic and subclavian somewhat limited secondary to contrast mixing. SVC is patent. Findings similar to ultrasound dated 01/24/2020. 2. Enlarged level 2 right cervical lymph nodes, likely reactive. 3. No other evidence of acute abnormality within the soft tissues of the neck. TECHNICAL DOCUMENTATION: JOB ID: [id number] [facility] [id number]: Final reports with documentation of one or more dose reduction techniques (e.g., Automate d exposure control, adjustment of the mA and/or kV according to patient size, use of iterative recons truction technique) 2010 [employer]- All Rights Reserved Reading location - IP/workstation name: [email or web address]-
== END ==
LOC: RAD 08:51
PROVIDERS: ATTEND Internal Medicine
DX: C50.012 Malignant neoplasm of nipple and areola, left female breast (principal); R22.1 Localized swelling, mass and lump, neck
CPT/HCPCS: 70491